=== PATIENT | male | born 1960 | race Two or more races ===

== ENCOUNTER 2021-08-09 16:13 | Inpatient (IN) | payer OTHER ==
[~2021-08-09] VITALS: Ht 175.3 cm; Wt 136.1 kg
== END 2021-08-12 10:40 | disposition designated cancer center or children's hospital (05) | DRG 282 ==
LOC: ER 16:13 → ICU-2 08-10 17:33
PROVIDERS: ADMIT Internal Medicine; ATTEND Internal Medicine
PROC: B24BZZZ Ultrasonography of Heart with Aorta (ICD-10-PCS; principal; 2021-08-10)
DX: I21.4 Non-ST elevation (NSTEMI) myocardial infarction (principal); Z20.822 Contact with and (suspected) exposure to COVID-19